=== PATIENT | male | born 1975 | race Caucasian/White ===

== ENCOUNTER 2016-11-23 23:00 | Emergency (ER) | payer OTHER | END 2016-11-24 00:57 | disposition home or self-care (01) | LOC: ER 23:00 | DX: J20.9 Acute bronchitis, unspecified (principal); Z88.6 Allergy status to analgesic agent; Z88.8 Allergy status to other drugs, medicaments and biological substances; Z79.899 Other long term (current) drug therapy | CPT/HCPCS: 87502 ==